=== PATIENT | female | born 1950 | race Caucasian/White ===

== ENCOUNTER 2018-01-06 10:55 | Outpatient (CLI) | payer MEDICARE | END 2018-01-06 10:56 | disposition home or self-care (01) | LOC: BICMAMMO 10:55 | PROVIDERS: ATTEND Nurse Practitioner Family | DX: Z12.31 Encounter for screening mammogram for malignant neoplasm of breast (principal); R92.1 Mammographic calcification found on diagnostic imaging of breast; Z80.3 Family history of malignant neoplasm of breast; Z85.820 Personal history of malignant melanoma of skin | CPT/HCPCS: 77063; 77067 ==

== ENCOUNTER 2018-09-30 10:30 | Day surgery (SDC) | payer MEDICARE ==
[2018-09-29 14:41] VITALS: BMI 31.3
[2018-09-30] MEDS ORDERED: Metoclopramide HCl 10 MG/2 ML VIAL ONE (11:13)
[2018-09-30] MEDS ORDERED: Lidocaine 1% PF 5 ML VIAL ONE (11:13)
[2018-09-30] MEDS ORDERED: Ondansetron PF 4 MG/2 ML Vial ONE (11:13)
[2018-09-30] MEDS ORDERED: Ketorolac Tromethamine 30 MG/ML VIAL ONE (11:13)
[2018-09-30] MEDS ORDERED: diphenhydrAMINE 50 MG/ML VIAL ONE (11:13)
[2018-09-30] MEDS ORDERED: PROPOFOL 200 MG/20 ML VIAL ONE (11:13)
[2018-09-30] MEDS ORDERED: Dexamethasone 20 MG/5 ML VIAL ONE (11:13)
[2018-09-30] MEDS ORDERED: Famotidine/PF 20 mg/2ml Vial ONE (11:29)
[2018-09-30] MEDS ORDERED: Fentanyl 100 MCG/2 ML VIAL ONE (11:29)
[2018-09-30] MEDS ORDERED: CEFAZOLIN 2 GM/50 ML BAG ONE (11:32)
[2018-09-30] MEDS ORDERED: Bupivacaine PF 0.5% 30 ML VIAL ONE (11:38)
[2018-09-30] MEDS ORDERED: Betamet Acet/Betamet Na Ph 30 MG/5 ML VIAL ONE (11:38)
--- NOTE | 2018-09-30 19:35 | OP ---
DATE OF PROCEDURE: 09/30/2018 PREOPERATIVE DIAGNOSIS: Left carpal tunnel syndrome. POSTOPERATIVE DIAGNOSIS: Left carpal tunnel syndrome with findings of 1 cm area of central transverse carpal ligament with very significant hourglass formation and stippling, very tight transverse carpal ligament over this point. ANESTHESIOLOGIST: Supriya Becerra CRNA and MD Fernandez. ANESTHESIA: General via propofol with 10 mL 0.5% Marcaine block given prior to prep and drape. SPECIMEN: None. BLOOD LOSS: Less than 5 mL. DESCRIPTION OF PROCEDURE: After successful anesthesia listed above, the limb was prepped and draped. Time-out was done approximately 10 minutes after injection to allow the anesthetic to become effective and then with the tourniquet at 250 mmHg pressure, we made a mini carpal tunnel incision 2.5 cm beginning as far proximally as 5 mm distal to the volar flexion crease and ending at [place] cardinal line. Carried incision through skin, subcutaneous tissue, following the palmaris longus and through the center of the palmaris longus. We made incision in the midportion of transverse carpal ligament distally, protecting all distal nerve branches as well as the type 1 motor take off. Then from here, we visualized the entire transverse carpal ligament from here proximally, and a combination of [place] blade and tenotomy scissors released it. Here we saw in the proximal one-third of the carpal canal, the stippling and hourglass formation over 1 cm area, indicative of the greatest compression of the nerve. We placed 3 mL of [place] over this area and 2 over rest of the nerve. I then released the tourniquet, obtained hemostasis, closed the wound with interrupted 4-0 nylon, mattress pattern. The patient left the operating room with a soft dressing. No evidence of anesthetic or operative complication. Job ID: [id number]
== END 2018-09-30 13:25 | disposition home or self-care (01) ==
LOC: SDC 10:30
PROVIDERS: ATTEND Orthopaedic Surgery Hand Surgery
PROC: 01N50ZZ Release Median Nerve, Open Approach (ICD-10-PCS; principal; 2018-09-30)
DX: G56.03 Carpal tunnel syndrome, bilateral upper limbs (principal); M18.0 Bilateral primary osteoarthritis of first carpometacarpal joints; M19.049 Primary osteoarthritis, unspecified hand; M65.849 Other synovitis and tenosynovitis, unspecified hand; Z79.899 Other long term (current) drug therapy
CPT/HCPCS: J0702; J1100; J1200; J1885; J2001; J2405; J2704; J2765; J3010; S0020; S0028

== ENCOUNTER 2019-09-26 14:12 | Outpatient (CLI) | payer MEDICARE ==
--- NOTE | 2019-09-26 15:35 | MMO ---
Bilateral MAMMO Bilat Screen [facility]. CLINICAL HISTORY: Patient is 68 years old and is seen for screening. The patient has the following family history of breast cancer: grandmother and aunt. The patient has a history of melanoma in 1996. VIEWS: The views performed were: bilateral craniocaudal with tomosynthesis and bilateral mediolateral oblique with tomosynthesis. FILMS COMPARED: The present examination has been compared to prior imaging studies performed at [facility] on 12/06/2014, 10/15/2016 and 01/06/2018. This study has been interpreted with the assistance of computer-aided detection. MAMMOGRAM FINDINGS: There are scattered fibroglandular densities. Benign calcifications are noted bilaterally. There are no suspicious masses, suspicious calcifications, or new areas of architectural distortion. IMPRESSION: THERE IS NO MAMMOGRAPHIC EVIDENCE OF MALIGNANCY. A ROUTINE FOLLOW-UP MAMMOGRAM IN 1 YEAR IS RECOMMENDED. THE RESULTS OF THIS EXAM WERE SENT TO THE PATIENT. ACR BI-RADS Category 2 - Benign finding MAMMOGRAPHY NOTE: 1. A negative mammogram report should not delay a biopsy if a dominant of clinically suspicious mass is present. 2. Approximately 10% to 15% of breast cancers are not detected by mammography. 3. Adenosis and dense breasts may obscure an underlying neoplasm. Reported by: CURTIS VU MD Electonically Signed: [id number]
== END 2019-09-26 14:13 | disposition home or self-care (01) ==
LOC: BICMAMMO 14:12
PROVIDERS: ATTEND Nurse Practitioner Family
DX: Z12.31 Encounter for screening mammogram for malignant neoplasm of breast (principal); Z80.3 Family history of malignant neoplasm of breast; Z85.820 Personal history of malignant melanoma of skin
CPT/HCPCS: 77063; 77067

== ENCOUNTER 2020-04-15 14:23 | Emergency (ER) | payer MEDICARE ==
--- NOTE | 2020-04-15 15:50 | RAD ---
RIGHT HAND 3 VIEWS: HISTORY: Injury, right hand pain. FINDINGS/IMPRESSION: There is dorsal dislocation of the PIP joint of the little finger/5th digit. POS: OFF
[2020-04-15] MEDS ORDERED: Lidocaine 1% (PF) 30 ML VIAL ONE (16:01)
[2020-04-15] MEDS ORDERED: Adacel (T-DAP) 0.5 ML SYRINGE ONE (16:26)
--- NOTE | 2020-04-15 16:55 | RAD ---
RIGHT FINGER TWO VIEWS: History: Injury, post reduction of dislocation. FINDINGS: There has been interval reduction of the dorsal dislocation of the PIP joint of the little finger/fif th digit of the right hand since earlier exam at 3:24 p.m. There is a nondisplaced oblique fracture a t the base of the dorsal aspect of the middle phalanx which extends into the articular surface, uncha nged since the prior exam. POS: OFF
[2020-04-15] MEDS ORDERED: Bacitracin 1 PK ONE (17:02)
== END 2020-04-15 17:05 | disposition home or self-care (01) ==
LOC: ERS 14:23
DX: S63.286A Dislocation of proximal interphalangeal joint of right little finger, initial encounter (principal); W31.89XA Contact with other specified machinery, initial encounter
CPT/HCPCS: 26770; 90471; 90715; J2001

== ENCOUNTER 2020-10-30 11:20 | Outpatient (CLI) | payer MEDICARE ==
--- NOTE | 2020-10-30 12:54 | MMO ---
Bilateral MAMMO Bilat Screen [facility]. CLINICAL HISTORY: Patient is 70 years old and is seen for screening. The patient has the following family history of breast cancer: paternal aunt, malignant (generic) and paternal grandmother, malignant (generic). The patient has a history of melanoma in 1996. VIEWS: The views performed were: bilateral craniocaudal with tomosynthesis and bilateral mediolateral oblique with tomosynthesis. FILMS COMPARED: The present examination has been compared to prior imaging studies performed at [facility] on 12/06/2014, 10/15/2016, 01/06/2018 and 09/26/2019. This study has been interpreted with the assistance of computer-aided detection. MAMMOGRAM FINDINGS: There are scattered fibroglandular densities. There are no suspicious masses, suspicious calcifications, or new areas of architectural distortion. IMPRESSION: THERE IS NO MAMMOGRAPHIC EVIDENCE OF MALIGNANCY. A ROUTINE FOLLOW-UP MAMMOGRAM IN 1 YEAR IS RECOMMENDED. THE RESULTS OF THIS EXAM WERE SENT TO THE PATIENT. ACR BI-RADS Category 1 - Negative MAMMOGRAPHY NOTE: 1. A negative mammogram report should not delay a biopsy if a dominant of clinically suspicious mass is present. 2. Approximately 10% to 15% of breast cancers are not detected by mammography. 3. Adenosis and dense breasts may obscure an underlying neoplasm. Reported by: MARILY AMOS MD Electonically Signed: [id number]
== END 2020-10-30 11:21 | disposition home or self-care (01) ==
LOC: BICMAMMO 11:20
PROVIDERS: ATTEND Nurse Practitioner Family
DX: Z12.31 Encounter for screening mammogram for malignant neoplasm of breast (principal); Z85.820 Personal history of malignant melanoma of skin; Z80.3 Family history of malignant neoplasm of breast
CPT/HCPCS: 77063; 77067

== ENCOUNTER 2020-12-04 12:22 | Outpatient (CLI) | payer MEDICARE | END 2020-12-04 12:23 | disposition home or self-care (01) | LOC: TBSIIMAG 12:22 | PROVIDERS: ATTEND Nurse Practitioner Acute Care | DX: R29.898 Other symptoms and signs involving the musculoskeletal system (principal); M47.812 Spondylosis without myelopathy or radiculopathy, cervical region; M48.02 Spinal stenosis, cervical region | CPT/HCPCS: 72141 ==

== ENCOUNTER 2021-01-17 14:32 | Outpatient (CLI) | payer MEDICARE | END 2021-01-17 14:33 | disposition home or self-care (01) | LOC: BICULT 14:32 | PROVIDERS: ATTEND Internal Medicine Cardiovascular Disease | DX: E04.1 Nontoxic single thyroid nodule (principal) | CPT/HCPCS: 76536 ==

== ENCOUNTER 2022-11-25 11:06 | Outpatient (CLI) | payer MEDICARE | END 2022-11-25 11:07 | disposition home or self-care (01) | LOC: BICMAMMO 11:06 | PROVIDERS: ATTEND Nurse Practitioner Family | DX: Z12.31 Encounter for screening mammogram for malignant neoplasm of breast (principal); Z80.3 Family history of malignant neoplasm of breast; Z85.820 Personal history of malignant melanoma of skin | CPT/HCPCS: 77063; 77067 ==